=== PATIENT | male | born 1980 | race Caucasian/White ===

== ENCOUNTER 2023-08-14 19:15 | Emergency (ER) | payer MEDICAID ==
[~2023-08-14] VITALS: Ht 165.1 cm; Wt 82.0 kg
[2023-08-14 19:27] VITALS: TEMP 98.4; O2SAT 99
[2023-08-14] MEDS: HYDROCODONE/ACETAMINOPHEN 5/325MG TABLET PO ONE (21:14)
[2023-08-14] MEDS: TETANUS, DIPHTHERIA, PERTUSSIS VAC/PF 0.5ML (>10YR OLD) IM ONE (21:16)
[2023-08-14] MEDS: LIDOCAINE HCL/PF 1% 10 MG/ML 5ML VIAL INFIL ONE (23:04)
[2023-08-14] MEDS: BACITRACIN ZINC OINT UDPKT TOP ONE (23:05)
[2023-08-15] MEDS ORDERED: IBUP-2029 MT (01:21)
[2023-08-15] MEDS ORDERED: AMOX1TAB16 MT (01:21)
[2023-08-15] MEDS ORDERED: HYDR-4001 MT (01:21)
[2023-08-15] MEDS ORDERED: BO1 TP (01:22)
[2023-08-15] MEDS: AMOXICILLIN/POTASSIUM CLAVULANATE 875/125MG TAB PO ONE (01:34)
[2023-08-15 02:04] VITALS: BP 145/92; PULSE 90; RESP 16
== END 2023-08-15 03:12 | disposition home or self-care (01) ==
LOC: ER 19:15
DX: S02.609A Fracture of mandible, unspecified, initial encounter for closed fracture (principal); S61.211A Laceration without foreign body of left index finger without damage to nail, initial encounter; M48.02 Spinal stenosis, cervical region; Z88.2 Allergy status to sulfonamides; Y04.0XXA Assault by unarmed brawl or fight, initial encounter; Y93.89 Activity, other specified; Y92.89 Other specified places as the place of occurrence of the external cause; Y99.8 Other external cause status
CPT/HCPCS: 71045; 73130; 70450; 70486; 72125; 90715; 12001; 90471; 99285; J3490; Z7610 ×3